=== PATIENT | male | born 1990 ===

== ENCOUNTER 2017-05-30 10:20 | Emergency (ER) | payer OTHER ==
[2017-05-30 10:21] VITALS: BMI 24.2
[2017-05-30 10:32] VITALS: BP 133/71; PULSE 63; RESP 17; TEMP 98.1; O2SAT 100
--- NOTE | 2017-05-30 12:12 | C.PDOC ---
History Of Present Illness 26 year old male presents to the emergency department with complaints of left- sided facial swelling ongoing since yesterday. Patient denies any foul taste in his mouth, abscess, trauma, or change in vision. Chief Complaint (Nursing): ENT Problem History Per: Patient History/Exam Limitations: no limitations Onset/Duration Of Symptoms: Days (1) Current Symptoms Are (Timing): Still Present Quality: Positive for: Other (swelling) Past Medical History Reviewed: Historical Data, Nursing Documentation, Vital Signs Vital Signs: Last Vital Signs Temp 98.1 F 05/30/17 10:28 Pulse 63 05/30/17 10:28 Resp 17 05/30/17 10:28 BP 133/71 05/30/17 10:28 Pulse Ox 100 05/30/17 12:19 - Medical History PMH: No Chronic Diseases Denies: Chronic Kidney Disease Surgical History: Appendectomy - [facility] Procedures RESECTION OF APPENDIX, OPEN APPROACH (06/13/15) Family History: States: No Known Family Hx - Social History Hx Alcohol Use: No Hx Substance Use: No - Immunization History Hx Tetanus Toxoid Vaccination: No Hx Influenza Vaccination: No Hx Pneumococcal Vaccination: No Review Of Systems Except As Marked, All Systems Reviewed And Found Negative. ENT: Positive for: Mouth Swelling (left side of the face). Negative for: Other (no foul taste in mouth, no abscess) Neurological: Negative for: Other (change in vision) Physical Exam - Physical Exam Head: Atraumatic, Normacephalic, Tenderness (noted to the cheek area) Teeth: Other (tooth number 16 on the left side is impacted) Gingiva: No Erythema, Swelling, No Abscess ED Course And Treatment O2 Sat by Pulse Oximetry: 100 (RA) Pulse Ox Interpretation: Normal Medical Decision Making Medical Decision Making: Plan: Motrin 600mg PO Disposition - Disposition Referrals: [facility] [Outside] Disposition: HOME/ ROUTINE Disposition Time: 10:45 Condition: GOOD Additional Instructions: Thank you for letting us take care of you today. The emergency medical care you received today was directed at your acute symptoms. If you were prescribed any medication, please fill it and take as directed. It may take several days for your symptoms to resolve. Return to the Emergency Department if your symptoms worsen, do not improve, or if you have any other problems. Please contact your doctor or call one of the physicians/clinics you have been referred to that are listed on the Patient Visit Information form that is included in your discharge packet. Bring any paperwork you were given at discharge with you along with any medications you are taking to your follow up visit. Our treatment cannot replace ongoing medical care by a primary care provider (PCP) outside of the emergency department. Thank you for allowing the [facility] team to be part of your care today. Follow up with your dentist or one on the list provided in 1-2 days for re- evaluation and further management. Maryellen por dejarnos atenderlo hoy. La atencin mdica de emergencia que recibi hoy estaba dirigida a vee sntomas agudos. Si le prescribieron algn medicamento, llnelo y tome segn las indicaciones. Eve sntomas pueden tardar varios mejias en resolverse. Regrese al Departamento de Emergencia si eve s ntomas empeoran, no mejoran o si tiene algn otro problema. Comunquese con castillo mdico o llame a jewell de los mdicos / clnicas a los que stevens sido referido que figura en el formulario de Informacin de visita del paciente que se incluye en castillo paquete de jahaira. Traiga todos los documentos que recibi al momento del jahaira junto con los medicamentos que est tomando en castillo visita de seguimiento. Nuestro tratamiento no puede reemplazar la atencin mdica en curso por parte de un proveedor de atencin primaria (PCP) fuera del departamento de emergencias. Maryellen por permitir que el equipo de [facility] sea parte de castillo cuidado hoy. Abe un seguimiento con castillo dentista o jewell de la lista provista en 1 o 2 mejias para mikki reevaluacin y administracin adicional. Prescriptions: Amoxicillin/Clavulanate [Augmentin 875 MG-125 MG] 1 tab PO BID #14 tab Ibuprofen [Motrin] 600 mg PO Q6 PRN #20 tab PRN Reason: Pain, Moderate (4-7) Instructions: Impacted Tooth (DC) Forms: [employer] ([place]) Print Language: THAI - Clinical Impression Clinical Impression: Impacted tooth - Scribe Statement The provider has reviewed the documentation as recorded by the Scribe (Lanre Guerra) Provider Attestation: All medical record entries made by the Scribe were at my direction and personally dictated by me. I have reviewed the chart and agree that the record accurately reflects my personal performance of the history, physical exam, medical decision making, and the department course for this patient. I have also personally directed, reviewed, and agree with the discharge instructions and disposition.
== END 2017-05-30 11:16 | disposition home or self-care (01) ==
LOC: C.ER 10:20
DX: K01.1 Impacted teeth (principal)